=== PATIENT | male | born 1945 | race Caucasian/White ===

== ENCOUNTER → 2016-10-21 | Emergency (ER) | payer MEDICARE, MEDICAID ==
[~2016-10-21] VITALS: Ht 167.6 cm; Wt 52.7 kg
[2016-10-21 15:04] VITALS: BP 102/68
== END | disposition home or self-care (01) ==
LOC: ED 14:38
DX: R13.19 Other dysphagia (principal)
CPT/HCPCS: 99282

== ENCOUNTER 2016-11-10 11:13 | Emergency (ER) | payer MEDICARE, MEDICAID ==
[~2016-11-10] VITALS: Ht 172.7 cm; Wt 73.0 kg
[2016-11-10] MEDS ORDERED: SODIUM CHLORIDE FLUSH 10 ML SYR IV PRN (11:35)
[2016-11-10] MEDS ORDERED: KETOROLAC 30 MG/ML (TORADOL) 1 ML VIAL IV ONE (11:35)
[2016-11-10] MEDS ORDERED: SODIUM CHLORIDE FLUSH 3 ML SYR IV PRN (11:35)
[2016-11-10] MEDS ORDERED: ONDANSETRON 2 MG/ML (Z0FRAN) 2 ML VIAL IV ONE (11:35)
[2016-11-10 12:05] LABS: MEAN CORPUSCULAR HGB CONC 33.6 g/dL (31.0-37.0); MEAN CORPUSCULAR VOLUME 93 FL (80-100); MEAN PLATELET VOLUME 9.3 FL (6.0-9.5); PLATELET COUNT 269 10^3uL (150-450); WHITE BLOOD COUNT 13.77 10^3uL (4.0-11.0)
[2016-11-10 12:08] LABS: BILIRUBIN,URINE 1+ (Negative); CLARITY,URINE Slightly Cloudy; COLOR,URINE Dark Yellow; GLUCOSE, URINE (UA) Negative (Negative); LEUKOCYTE ESTERASE ,URINE 1+ (Negative)
[2016-11-10 12:14] LABS: BAND NEUTROPHILS % 1 % (0-6); EOSINOPHILS % 0 % (0-4); LYMPHOCYTES # 1.2 #; MEAN CORPUSCULAR HEMOGLOBIN 31.4 PG (26.0-34.0); MONOCYTES # 1.2 #; MONOCYTES % 9 % (3-11); RBC MORPH NORMAL (NORMAL); SEGMENTED NEUTROPHILS % 81 % (51-67); TOTAL CELLS COUNTED 100
[2016-11-10 12:17] LABS: URINE CENTRIFUGED VOLUME 10 mL
[2016-11-10 12:23] LABS: ALBUMIN 3.7 g/dL (3.4-5.0); CALCULATED IONIZED CALCIUM 4.1 mg/dL (3.8-4.6); TOTAL PROTEIN 6.9 g/dL (6.4-8.5)
[2016-11-10] MEDS ORDERED: cefTRIAXone SODIUM 1,000 MG in SODIUM CHLORIDE 50 ML IV ONE (13:15)
[2016-11-10] MEDS ORDERED: diphenhydrAMINE 50 MG/ML INJ (BENADRYL) IV ONE (13:15)
--- NOTE | 2016-11-10 13:25 | NUR ---
DAREN Giron giving 50 mg test dose of Rocephin. Doc ordered to wait 20 minutes after dose to check for allergic reaction.
[2016-11-13 11:17] LABS: LAMOTRIGINE 9.5 mcg/mL
== END 2016-11-10 14:45 | disposition home or self-care (01) ==
LOC: ED 11:15
DX: N39.0 Urinary tract infection, site not specified (principal); R11.2 Nausea with vomiting, unspecified
CPT/HCPCS: 36415; 74022; 80053; 80156; 81003; 81015; 82150; 83690; 85025; 86140; 87088; 96361; 96374; 96375; 99285; J0696; J1200; J1885; J2405; J7030; 80175; 87077; 87186; 99283

== ENCOUNTER → 2016-11-14 | Outpatient (CLI) | payer MEDICARE, MEDICAID ==
[2016-11-14 08:37] LABS: BASOPHILS % (AUTO) 0 % (0-2); EOSINOPHILS # (AUTO) 0.2 10^3uL; EOSINOPHILS % (AUTO) 2 % (0-4); LYMPHOCYTES # (AUTO) 1.2 X10^3; MEAN CORPUSCULAR HGB CONC 33.6 g/dL (31.0-37.0); MEAN CORPUSCULAR VOLUME 94 FL (80-100); MEAN PLATELET VOLUME 8.9 FL (6.0-9.5); MONOCYTES % (AUTO) 13 % (3-11); NEUTROPHILS # (AUTO) 5.3 X10^3; NEUTROPHILS % (AUTO) 68 % (51-67); PLATELET COUNT 371 10^3uL (150-450); WHITE BLOOD COUNT 7.68 10^3uL (4.0-11.0)
[2016-11-14 08:42] LABS: MEAN CORPUSCULAR HEMOGLOBIN 31.6 PG (26.0-34.0)
[2016-11-14 09:04] LABS: ALBUMIN 3.3 g/dL (3.4-5.0); ANION GAP 13.1 MEQ/L (3-15); CALCULATED IONIZED CALCIUM 4.2 mg/dL (3.8-4.6); TOTAL PROTEIN 6.5 g/dL (6.4-8.5)
[2016-11-15 11:58] LABS: LAMOTRIGINE 4.7 mcg/mL
== END ==
LOC: LAB 08:20
PROVIDERS: ATTEND Family Medicine
DX: R79.89 Other specified abnormal findings of blood chemistry (principal); E78.2 Mixed hyperlipidemia; D50.8 Other iron deficiency anemias; K71.2 Toxic liver disease with acute hepatitis; Z12.5 Encounter for screening for malignant neoplasm of prostate; E03.4 Atrophy of thyroid (acquired); M81.0 Age-related osteoporosis without current pathological fracture; G40.909 Epilepsy, unspecified, not intractable, without status epilepticus
CPT/HCPCS: 36415; 80053; 80061; 80156; 80175; 82360; 82977; 84436; 84443; 85025; G0103; 82306; 84153

== ENCOUNTER → 2016-11-26 | Outpatient (CLI) | payer MEDICARE, MEDICAID | LOC: LAB 08:23 | PROVIDERS: ATTEND Family Medicine | DX: G40.909 Epilepsy, unspecified, not intractable, without status epilepticus (principal) | CPT/HCPCS: 36415; 80156 ==